=== PATIENT | female | born 1965 | race Caucasian/White ===

== ENCOUNTER → 2020-02-11 | Outpatient (CLI) | payer BC | END | disposition home or self-care (01) | LOC: RAH 07:31 | PROVIDERS: ATTEND Physical Medicine & Rehabilitation | DX: G43.709 Chronic migraine without aura, not intractable, without status migrainosus (principal) | CPT/HCPCS: 70551 ==

== ENCOUNTER 2020-04-20 10:15 | Observation (INO) | payer BC ==
[~2020-04-20] VITALS: Ht 165.1 cm; Wt 81.6 kg
[2020-04-20 11:46] LABS: BASOPHILS % (AUTO) 0.7 % (0.0-5.0); EOSINOPHILS % (AUTO) 1.6 % (0.0-8.0); HEMATOCRIT 43.7 % (36-48); MEAN CORPUSCULAR HEMOGLOBIN 30.5 pg (27.0-33.0); MEAN CORPUSCULAR HGB CONC 33.2 g/dL (32.0-36.0); MONOCYTES % (AUTO) 5.8 % (3.0-13.0); NEUTROPHILS % (AUTO) 55.8 % (40.0-77.0); PLATELET COUNT (AUTO) 263 K/uL (130-400); RED BLOOD CELL COUNT(AUTO) 4.75 MIL/uL (4.00-5.50); RED CELL DISTRIBUTION WIDTH 13.1 % (11.0-15.5); WHITE BLOOD COUNT (AUTO) 6.9 K/uL (4.8-10.8)
[2020-04-20 12:09] LABS: POTASSIUM 3.4 mmol/L (3.5-5.1)
[2020-04-24 09:11] VITALS: BP 138/66
[2020-04-24] MEDS ORDERED: CLINDAMYCIN 900 MG/D5% WATER 50 ML IV PRN (09:30)
[2020-04-24] MEDS ORDERED: METO25TA6 PO (09:46)
[2020-04-24] MEDS ORDERED: HYDR25TA PO (09:46)
[2020-04-24] MEDS ORDERED: GABA600T10 PO ×2 (09:46)
[2020-04-25] VITALS (32 sets, daily range): BP systolic 87–153; BP diastolic 6–86
[2020-04-25] MEDS ORDERED: LACTATED RINGERS 1000ML 1,000 ML IV ONE (06:18)
[2020-04-25] MEDS ORDERED: CEFAZOLIN SODIUM 1 GM VIAL ONE (06:45)
[2020-04-25] MEDS ORDERED: BUPIVACAINE/EPI/PF 0.5% 30ML VIAL IJ ONE (06:45)
[2020-04-25] MEDS ORDERED: THROMBIN-JMI 20000 UNIT KIT TP ONE (06:46)
[2020-04-25] MEDS ORDERED: DURAMORPH PF1 MG/ML 10ML AMP IV ONE (06:46)
[2020-04-25] MEDS ORDERED: GLYCOPYRROLATE 1 MG/5 ML SYRINGE ONE (06:56)
[2020-04-25] MEDS ORDERED: LIDOCAINE PF 2% 5ML ABBOJECT ONE (06:56)
[2020-04-25] MEDS ORDERED: SUCCINYLCHOLINE CHLORIDE 20 MG/ML 10 ML VIAL ONE (06:56)
[2020-04-25] MEDS ORDERED: DEXAMETHASONE SOD PHOSPHATE 10MG/ML 1ML VIAL ONE (06:56)
[2020-04-25] MEDS ORDERED: ROCURONIUM 10MG/1ML SYR 10 MG/ML ML ONE (06:57)
[2020-04-25] MEDS ORDERED: FENTANYL CITRATE PF 50 MCG/1 ML 2ML VIAL ONE (06:57)
[2020-04-25] MEDS ORDERED: MIDAZOLAM HCL 1 MG/ML 2ML VIAL ONE ×2 (06:57→11:39)
[2020-04-25] MEDS ORDERED: NEOSTIGMINE 5MG/5ML SYR IV ONE (06:57)
[2020-04-25] MEDS ORDERED: PROPOFOL 10 MG/ML 20ML VIAL IV ONE (06:57)
[2020-04-25] MEDS ORDERED: ONDANSETRON HCL 4 MG/2 ML VIAL ONE (06:57)
[2020-04-25] MEDS ORDERED: PHENYLEPHRINE HCL 10 MG/ML 1ML VIAL IV ONE ×2 (08:36→08:58)
[2020-04-25] MEDS ORDERED: GENTAMICIN 80 MG/NS 100 ML PB 100 ML IV ONE (10:20)
[2020-04-25] MEDS ORDERED: MORPHINE SULFATE 2 MG/ML 1ML SYG IVP PRN (10:45)
[2020-04-25] MEDS ORDERED: PROMETHAZINE HCL 25 MG/ML 1ML AMPULE IM PRN (10:45)
[2020-04-25] MEDS: LACTATED RINGERS 1000ML 1,000 ML IV SCH ×2 (10:45→20:33)
[2020-04-25] MEDS ORDERED: SODIUM CHLORIDE 0.9% 10 ML VIAL IVP PRN (10:45)
[2020-04-25] MEDS ORDERED: MEPERIDINE-PF 25 MG/ML SYG ONE ×2 (11:19→11:34)
[2020-04-25] MEDS: HYDROCODONE/ACETAMINOPHEN 5/325 MG TAB PO PRN ×4 (13:04→23:36)
[2020-04-25] MEDS: CLINDAMYCIN 900 MG/D5% WATER 50 ML IV SCH ×3 (13:56→21:03)
--- NOTE | 2020-04-25 14:09 | NUR ---
activity: ambulated in hallway with assistance without complaining of dizziness. slow and steady gait.
[2020-04-25] MEDS ORDERED: DEXAMETHASONE SOD PHOSPHATE 4 MG/ML 1ML VIAL ONE (14:28)
[2020-04-25] MEDS: DEXAMETHASONE SOD PHOSPHATE 4 MG/ML 1ML VIAL IVP SCH ×3 (14:30→21:00)
--- NOTE | 2020-04-25 15:00 | NUR ---
drain: antonina drain combined as ordered.
[2020-04-25] MEDS ORDERED: DIPHENHYDRAMINE HCL 25 MG CAPSULE ONE (20:24)
[2020-04-25] MEDS ORDERED: DIPHENHYDRAMINE HCL 25 MG CAPSULE PO SCH (20:30)
[2020-04-25] MEDS ORDERED: GABAPENTIN 300 MG CAPSULE PO SCH (21:00)
[2020-04-25] MEDS ORDERED: METOPROLOL TARTRATE 25 MG TAB PO SCH (21:00)
[2020-04-26 00:04] VITALS: BP 106/57
[2020-04-26 04:04] VITALS: BP 109/64
[2020-04-26] MEDS: DEXAMETHASONE SOD PHOSPHATE 4 MG/ML 1ML VIAL IVP SCH ×2 (04:11→09:47)
[2020-04-26] MEDS: CLINDAMYCIN 900 MG/D5% WATER 50 ML IV SCH ×2 (04:12→08:18)
[2020-04-26] MEDS: HYDROCODONE/ACETAMINOPHEN 5/325 MG TAB PO PRN ×2 (05:01→08:45)
[2020-04-26 08:40] VITALS: BP 122/74
[2020-04-26] MEDS ORDERED: HYDROCHLOROTHIAZIDE 25 MG TABLET PO SCH (09:00)
[2020-04-26] MEDS ORDERED: GABAPENTIN 300 MG CAPSULE PO SCH (09:00)
[2020-04-26] MEDS: LACTATED RINGERS 1000ML 1,000 ML IV SCH (09:48)
--- NOTE | 2020-04-26 10:17 | NUR ---
CHART CHECK COMPLETED Pt IS A 55 Y.O. FEMALE ADMITTED SECONDARY TO INTERVERTEBRAL DISC DISORDER WITH LUMBAR LAMINECTOMY ON RIGHT L4-L5 OF FACET JOINT. Pt HAS A PAST MEDICAL HISTORY SIGNIFICANT FOR BREAST CA WITH ROSS MASTECTOMY, HTN. Pt CURRENTLY ON REGULAR TEXTURE, THIN LIQUID DIET. PLEASE REQUEST FORMAL SKILLED SPEECH/SWALLOW EVALUATION IF Pt PRESENTS WITH +S/S OF ASPIRATION SUCH COUGH RESPONSE, THROAT CLEAR, OR WET VOCAL QUALITY DURING P.O. Addendum: 04/26/20 at 1025 by DAVIS TOVAR, [facility] Amended: Links added.
[2020-04-26 11:41] VITALS: BP 111/63
--- NOTE | 2020-04-26 12:45 | NUR ---
DRESSING CHANGE REMOVED DRESSING CHANGED SLOWLY, PT VERY SENSITIVE. INCISION CLEAN AND DRY, TRAVIS INTACT, NO REDNESS OR DRAINAGE TO SITE, CLEANSED AREA WITH NORMAL SALINE, NOTICE SKIN IRRITATION AROUND WHERE HYPAFIX TAPE WAS. ADDED EXTRA GAUZE TO PROTECT AREA OF IRRITATION, ALSO CLEANSED AREA AND REMOVED TWO TRAVIS FROM LISSETH SITE AND DECOMPRESSED LISSETH, REMOVED LISSETH DRAIN, NO RESISTANCE NOTED, PLACED 4X4, TOLERATED WELL. ALSO PIV 20G REMOVED AND NO REDNESS OR DRAINAGE NOTED TO SITE, CATHETER INTACT, PLACED SMALL GAUZE DRESSING IN PLACE.
== END 2020-04-26 13:00 | disposition home or self-care (01) ==
LOC: EDSTATUS 10:15 → DAHIP 04-25 05:58 → 3BH 04-25 16:18
PROVIDERS: ADMIT Neurological Surgery; ATTEND Neurological Surgery
DX: M48.062 Spinal stenosis, lumbar region with neurogenic claudication (principal); Z20.828 Contact with and (suspected) exposure to other viral communicable diseases; M51.16 Intervertebral disc disorders with radiculopathy, lumbar region; I10 Essential (primary) hypertension; Z85.3 Personal history of malignant neoplasm of breast; Z90.13 Acquired absence of bilateral breasts and nipples; Z79.899 Other long term (current) drug therapy; Z88.0 Allergy status to penicillin; Z88.3 Allergy status to other anti-infective agents
CPT/HCPCS: 36415; 63047; 72020; 80051; 85025; 96361 ×3; 96365; 96375; 96376 ×2; A4215; A4221; A4222; A4223; A4344; A4510; A4600; A4649 ×3; A6260; G0378 ×26; J0330; J0690; J1100 ×4; J1580; J2001; J2175 ×2; J2250 ×2; J2274; J2370 ×2; J2405; J2704; J2710; J3010; J3490 ×5; J7030; J7120 ×3; Q0163; U0003